=== PATIENT | female | born 1940 | race Caucasian/White ===

== ENCOUNTER → 2019-05-25 11:11 | Outpatient (BNVA) | payer MEDICARE, OTHER, SELFPAY | PROVIDERS: Family Provider Nurse Practitioner; PCP Nurse Practitioner; Visit Provider Specialist | DX: G25.0 Essential tremor (principal); Z87.891 Personal history of nicotine dependence | CPT/HCPCS: 99213 ==

== ENCOUNTER → 2019-11-27 12:17 | Outpatient (BNVA) | payer MEDICARE, OTHER, SELFPAY | PROVIDERS: Family Provider Nurse Practitioner; PCP Nurse Practitioner; Visit Provider Surgery | DX: Z11.59 Encounter for screening for other viral diseases (principal) | CPT/HCPCS: 87635 ==

== ENCOUNTER 2019-12-02 06:41 | Day surgery (SDC) | payer MEDICARE, OTHER, SELFPAY ==
[2019-11-30 10:54] VITALS: BMI 24.0
--- NOTE | 2019-12-02 06:45 | W.PM.OPSFHP ---
Same Day Surgery H&P Indication for Procedure/HPI DATE OF PROCEDURE: December 02, 2019 CHIEF COMPLAINT/INDICATIONFOR SURGICAL PROCEDURE: Bleeding per rectum PREOP DIAGNOSIS: Bleeding per rectum PLANNED PROCEDRUE: Operation Date: 12/02/19 07:30 Proposed Procedures p Colonoscopy 83253 K57.92(Not Applicable) - Ilan Simons MD This is a pleasant 72 years old female patient well-known to me from previous surgery as she did have laparoscopic sigmoid colectomy back in August 2018 for complicated diverticulitis. Patient recently started to have bleeding per rectum before 2 weeks and she was started on antibiotics and since then it stopped. Patient is referred to me for potential colonoscopy. She currently denies any other symptoms. Patient had a colonoscopy back in November 2018 by me and was found to have scattered diverticula of the descending colon without complication and had at that time stitch granuloma. Interim history 12/02/2019 Patient comes today for her scheduled colonoscopy, and she continues to complain of blood with her stool. And she denies any blood thinners. ROS All systems have been reviewed negative except as per the above or per problem list Medications/Allergies* Home Medications Medication Instructions Recorded Confirmed Type bupropion HCl 200 mg tablet,12 hr 200 mg PO DAILY tab 05/25/19 11/30/19 History sustained-release hydrocodone 5 mg-acetaminophen 325 1 tab PO DAILY tab 05/25/19 11/30/19 History mg tablet lovastatin 20 mg tablet 20 mg PO DAILY 05/25/19 11/30/19 History meloxicam 15 mg tablet 15 mg PO DAILY 05/25/19 11/30/19 History pantoprazole 40 mg tablet,delayed 40 mg PO BID tab 10/26/19 11/30/19 History release enalapril maleate 10 mg PO DAILY 11/30/19 11/30/19 History Allergies/Adverse Reactions Allergy/AdvReac Type Severity Reaction Status Date / Time Penicillins Allergy ALGY-Swell Verified 12/02/19 06:46 Lip/Tongue/Throat Sulfa (Sulfonamide Allergy ALGY-Swell Verified 12/02/19 06:46 Antibiotics) Lip/Tongue/Throat codeine AdvReac ADR-Abdominal Verified 12/02/19 06:46 Pain Pertinent History/Comorbid Conditions* Medical History (Updated 10/26/19 @ 15:19 by Ilan Simons MD) GERD (gastroesophageal reflux disease) Hypercholesteremia Hyperlipidemia Hypertension Surgical History (Updated 10/26/19 @ 15:19 by Ilan Simons MD) H/O colonoscopy 10/2018 H/O esophagogastroduodenoscopy yrs ago H/O hernia repair H/O: hysterectomy History of bladder surgery History of colon resection Hx of cholecystectomy Family History (Updated 10/26/19 @ 11:18 by Jazmine Escudero LPN) Diabetes Hypertension Stroke Denies family history of CAD (coronary artery disease) Anesthesia complication Bleeding disorder Cancer Social History Smoking and tobacco status: former smoker Quit status (tobacco): has quit using tobacco Year quit tobacco: 1999 Alcohol intake: never Lives independently: Yes Household members: family Marital status: Single Current occupational status: retired History of recent travel: No Pertinent Exam Findings alert, oriented x 3, clear to auscultation bilaterally, regular rate & rhythm and procedure specific exam findings (Abdominal examination nontender nondistended soft) Recommendations Surgery/Procedure today (Colonoscopy with possible biopsy. 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
[2019-12-02 06:54] VITALS: BMI 24.0
[2019-12-02 07:00] VITALS: BP 142/82; PULSE 83; RESP 18; TEMP 36.3; O2SAT 99
[2019-12-02] MEDS: sodium chloride 0.9% 1,000 ML 30 ML IV (07:07)
--- NOTE | 2019-12-02 07:24 | ANES.PREANE2 ---
Pre-Anesthetic Assessment Pre-Anesthetic Assessment: Height/Weight: Height 1.63 m Weight 63.503 kg Temp Pulse Resp BP Pulse Ox 97.4 F L 83 18 142/82 99 12/02/19 07:00 12/02/19 07:00 12/02/19 07:00 12/02/19 07:00 12/02/19 07:00 Preop Diagnosis: Bleeding per rectum Proposed Procedure: Operation Date: 12/02/19 07:30 Proposed Procedures p Colonoscopy 83469 K57.92(Not Applicable) - Ilan Simons MD Was Beta Carol taken within 24 hours: Yes Last intake: Intake Last Liquid Date 12/01/19 Last Liquid Time 22:00 Last Solid Date 11/30/19 Last Solid Time 20:00 Social: Social History: No alcohol and No tobacco Exam: Pre-Anes Outpt Exam: alert, oriented x 3, clear to auscultation bilaterally and regular rate & rhythm Airway: Submandibular: WNL Cervical ROM: WNL MP: 2 History/ROS: No significant complaints Pulmonary: Pulmonary: None reported CV/HEM: CV/HEM: HTN : : None reported Hepatic: Hepatic: None reported GI: GI: GERD Metabolic: Metabolic: None reported Musc/skel: Musc/skel: None reported Neuropsych: Comments: Essential Tremor Anesthetic Plan: ASA status: 3 Anesthesia: MAC Meds/Allergies Current Medications: Current Medications Generic Name Dose Route Start Last Admin Trade Name Freq PRN Reason Stop Dose Admin Sodium Chloride 1,000 mls @ 30 ml s/hr 12/02/19 06:45 12/02/19 07:07 Sodium Chloride 0.9% IV 12/03/19 06:44 30 mls/hr .Q24H LORI Administration PFSH Anesthesia PFSH: Medical History GERD (gastroesophageal reflux disease) Hypercholesteremia Hyperlipidemia Hypertension Surgical History H/O colonoscopy 10/2018 H/O esophagogastroduodenoscopy yrs ago H/O hernia repair H/O: hysterectomy History of bladder surgery History of colon resection Hx of cholecystectomy Family History Other Diabetes Hypertension Stroke Denies family history of CAD (coronary artery disease) Anesthesia complication Bleeding disorder Cancer Social History Smoking and tobacco status: former smoker Quit status (tobacco): has quit using tobacco Year quit tobacco: 1999 Alcohol intake: never Lives independently: Yes Household members: family Marital status: Single Current occupational status: retired History of recent travel: No Data Anesthesia Cardiac Studies: No Data to Display
--- NOTE | 2019-12-02 08:08 | ANE.PACU2 ---
Inpatient post-anesthesia follow up: Airway intact: Yes Vital signs: Temperature 97.4 F Pulse Rate 83 Respiratory Rate 18 Blood Pressure 142/82 Pulse Oximetry 99 Oxygen Delivery Me thod Room Air Oxygen Flow Rate Fraction of Inspir ed Oxygen Hydration adequate: Yes Nausea and vomiting: No Pain level: 1 Mental status: Baseline
[2019-12-02 08:09] VITALS: BP 124/65; PULSE 68; RESP 18; TEMP 36.3; O2SAT 100
[2019-12-02 08:22] VITALS: BP 134/75; PULSE 69; RESP 18; O2SAT 100
== END 2019-12-02 08:39 | disposition home or self-care (01) ==
PROVIDERS: PCP Nurse Practitioner; Visit Provider Surgery
PROC: 0DJD8ZZ Inspection of Lower Intestinal Tract, Via Natural or Artificial Opening Endoscopic (ICD-10-PCS; CPT 45378; principal; 2019-12-02 07:30)
DX: K62.5 Hemorrhage of anus and rectum (principal); K57.30 Diverticulosis of large intestine without perforation or abscess without bleeding; K21.9 Gastro-esophageal reflux disease without esophagitis; E78.00 Pure hypercholesterolemia, unspecified; E78.5 Hyperlipidemia, unspecified; I10 Essential (primary) hypertension
CPT/HCPCS: 12345; 45380; 88305; J2704; J7030

== ENCOUNTER → 2020-05-16 08:38 | Outpatient (BNVA) | payer MEDICARE, OTHER, SELFPAY | PROVIDERS: PCP Nurse Practitioner; Visit Provider Specialist | DX: G25.0 Essential tremor (principal); Z87.891 Personal history of nicotine dependence | CPT/HCPCS: 99212 ==

== ENCOUNTER 2020-07-20 13:16 | Outpatient (CLI) | payer MEDICARE, OTHER, SELFPAY ==
--- NOTE | 2020-07-20 13:27 | CT_ITS ---
WS: [id number] CT ABDOMEN PELVIS TECHNIQUE: Noncontrast CT of the abdomen and pelvis with coronal and sagittal reformatted images. CLINICAL INFORMATION: HEMATURIA, LUQ PAIN COMPARISON: CT 8 29,018 DLP: 1039.[address] scans at [facility] use at least one of these dose optimization techniques: automat ed exposure control; mA and/or kV adjustment per patient size (includes targeted exams where dose is matched to clinical indication); or iterative reconstruction. FINDINGS: Noncontrast liver is normal. Adrenal glands are normal. No hydronephrosis in either kidney. Prominent extrarenal pelvises bilaterally. No obstructing renal or ureteral calculi. A few tiny nonobstructing right calyceal tip calculi. 7 mm nodule left lower lobe medially is stable. Noncontrast pancreas appears normal. Normal caliber a bdominal aorta. Aortic calcification. Small esophageal hiatal hernia. Postoperative changes distal sigmoid colon. Sigmoid diverticulosis. No evidence of acute diverticulit is. Vascular calcification. No abdominal or pelvic lymphadenopathy. No inguinal lymphadenopathy. Lumb ar scoliosis convex left. CT/CT kidney stone [id number] IMPRESSION: 1. No hydronephrosis. No obstructing renal or ureteral calculi. 2. Nonobstructing subcentimeter right calyceal tip calculi. 3. Small esophageal hiatal hernia. 4. Postoperative changes distal sigmoid colon. Sigmoid diverticulosis. No evid ence of acute diverticulitis 5. No other significant changes from previous.
== END 2020-07-20 13:17 | disposition home or self-care (01) ==
PROVIDERS: PCP Nurse Practitioner; Visit Provider Nurse Practitioner
DX: R31.9 Hematuria, unspecified (principal); R10.12 Left upper quadrant pain; K44.9 Diaphragmatic hernia without obstruction or gangrene; N20.0 Calculus of kidney
CPT/HCPCS: 74176

== ENCOUNTER 2020-08-25 13:44 | Outpatient (CLI) | payer MEDICARE, OTHER, SELFPAY ==
--- NOTE | 2020-08-25 13:52 | MM_ITS ---
WS: [id number] BILATERAL DIGITAL SCREENING MAMMOGRAPHY WITH CAD CLINICAL INFORMATION: SCREENING HISTORY: Screening mammogram. Left breast tenderness. COMPARISON: TECHNIQUE: Bilateral CC and MLO views. FINDINGS: Scattered fibroglandular densities bilaterally. Punctate and lucent centered calcifications. Vascular calcification. No suspicious focal mass, asymmetry, calcifications, or architectural distortion. No evidence of malignancy. MM/[place] [id number] IMPRESSION: BI-RADS: 2-Benign FOLLOW UP: 1 Year Follow-up Recommend return to annual screening mammography.
== END 2020-08-25 13:45 | disposition home or self-care (01) ==
LOC: RADSHAW 13:50
PROVIDERS: PCP Nurse Practitioner; Visit Provider Nurse Practitioner
DX: Z12.31 Encounter for screening mammogram for malignant neoplasm of breast (principal)
CPT/HCPCS: 77067

== ENCOUNTER → 2021-05-16 08:07 | Outpatient (BNVA) | payer MEDICARE, OTHER, SELFPAY | PROVIDERS: PCP Nurse Practitioner; Visit Provider Specialist | DX: G25.0 Essential tremor (principal) | CPT/HCPCS: 99212; 99213 ==

== ENCOUNTER → 2022-06-22 10:08 | Outpatient (BNVA) | payer MEDICARE, OTHER, SELFPAY | PROVIDERS: PCP Nurse Practitioner; Visit Provider Specialist | DX: G25.0 Essential tremor (principal) | CPT/HCPCS: 99213 ==

== ENCOUNTER 2023-01-23 08:11 | Outpatient (CLI) | payer MEDICARE, OTHER, SELFPAY ==
[2023-01-23 08:40] VITALS: BMI 20.7
--- NOTE | 2023-01-23 08:40 | ECG_ITS ---
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 Interpretive Statements NAME OF STUDY: LEXISCAN SESTAMIBI STRESS TEST INDICATION: Chest Pressure, Ateriosclerosis PROCEDURE: At the baseline, the blood pressure was 142/69 mm Hg with a heart rate of 67 bpm. The electrocardiogram showed sinus rhythm, normal axis with possible old septal infarct. Non specific T wave abnormality in III, aVF, V4-V6. ??? The Lexiscan was infused over a period of 20 seconds. A total of 0.4 milligrams of Lexiscan was infused. The stress phase was continued for a total of 5 minutes. Heart rate at the end of the stress phase was 87 bpm with a blood pressure of 115/54 mm Hg. The EKG at the peak infusion revealed no significant changes. ??? Sestamibi was injected 20 seconds after the Lexiscan infusion. ??? Blood pressure at the end of the recovery phase was 115/54 mm Hg with a heart rate of 86 beats per minute. ??? CONCLUSION: 1. No significant EKG changes with the LexiScan infusion. 2. No LexiScan induced chest pain or cardiac arrhythmia. 3. Normal blood pressure and heart rate response. 4. Sestamibi/sestamibi perfusion scan pending; see separate report. Electronically Signed On 01-25-2023 7:47:59 [place] PHOTOGRAPHER by Sallie Tavares M.D. [email or web address]
--- NOTE | 2023-01-23 08:40 | NMCV_ITS ---
NM nurys perf SPECT r/s* [id number] Nicol Choudhury Age: 82 Gender: F : 1940 Exam Date: 01/23/2023 09:31 Ordering Phys: Suyapa Patterson NP Technologist: ASHLEY Huerta Exam Location: [facility] Indications: CHEST PAIN STRESS TEST Please [facility] IMAGE PROTOCOL Rest/Stress 1 Lexiscan Day Radiopharmaceutical Dose (mCi) Administration Site Administered by Rest: Tc-99m 10.7 IV Debbie Jurado PRODUCT DEVELOPMENT COORDINATOR Sestamibi Stress:Tc-99m 32.4 IV Debbie Jurado, PRODUCT DEVELOPMENT COORDINATOR Sestamibi Rest: 23-Jan-2023 60 Discovery 630 Stress: 23-Jan-2023 30 Discovery 630 0.4mg Lexiscan. Images obtained in supine and prone position. SPECT RESULTS Technical Quality: Excellent Raw Data Analysis: Normal Image Corrections: No attenuation or motion correction applied Summed Stress Score: 0 Summed Rest Score: 2 Summed Difference Score: 0 PERFUSION FINDINGS Fairly uniform myocardial tracer uptake with no significant perfusion abnormalities FUNCTIONAL RESULTS (calculated via Gated SPECT) Stress Image LV EF (%): 92 Stress EDV (mL):36 TID: 1.09 Stress ESV (mL):3 FUNCTIONAL FINDINGS: Segmental wall motion analysis revealing no gross wall motion abnormalities IMPRESSIONS 1. Myocardial perfusion imaging revealing fairly uniform myocardial tracer uptake with no significant perfusion abnormalities. 2. Normal LV ejection fraction of 92%. 3. LV wall motion analysis revealing no gross wall motion abnormalities. 4. Normal LV volume No similar previous studies are available for comparison Dr Laura Arellano MD [facility] (Electronically Signed) Final Date: 23 January 2023 13:02 S
[2023-01-23] MEDS: regadenoson 0.4 Mg/5 ml Syringe IVP (10:10)
[2023-01-23 10:18] VITALS: BP 115/54; PULSE 86
== END 2023-01-23 08:12 | disposition home or self-care (01) ==
LOC: CDL 08:12
PROVIDERS: PCP Nurse Practitioner Family; Visit Provider Nurse Practitioner Family
DX: R07.9 Chest pain, unspecified (principal); I70.90 Unspecified atherosclerosis
CPT/HCPCS: 36415; 78452; 93017; 96374; A9500; J2785

== ENCOUNTER → 2023-06-18 10:22 | Outpatient (BNVA) | payer MEDICARE, OTHER, SELFPAY | PROVIDERS: PCP Nurse Practitioner Family; Visit Provider Specialist | DX: G25.0 Essential tremor (principal) | CPT/HCPCS: 99212 ==

== ENCOUNTER 2023-08-12 10:13 | Outpatient (CLI) | payer MEDICARE, OTHER, SELFPAY ==
--- NOTE | 2023-08-12 10:25 | CTR_ITS ---
PROCEDURE INFORMATION: Exam: CT Chest Without Contrast; Diagnostic Exam date and time: 08/12/2023 10:46 AM Age: 82 years old Clinical indication: Condition or disease; Lung condition and disease; Pulmonary nodule, solitary; Additional info: Solitary pulmonary nodule/abnormal weight loss TECHNIQUE: Imaging protocol: Diagnostic computed tomography of the chest without contrast. Radiation optimization: All CT scans at this facility use at least one of these dose optimization techniques: automated exposure control; mA and/or kV adjustment per patient size (includes targeted exams where dose is matched to clinical indication); or iterative reconstruction. COMPARISON: CT chest w con* [id number] 11/05/2017 9:27 AM RADIATION DOSE METRICS: Total DLP (mGy-cm): 668.52 FINDINGS: Lungs: 5 mm right lower lobe lung nodule (series 3, image 34) is not significantly changed since 11/05/2017 CT. Stable 5 mm right middle lobe perifissural nodule (image 36). Mild linear atelectasis/scar in the bilateral apices and anterior/medial left upper lobe. 8 mm medial left lower lobe lung nodule (image 42) has slightly enlarged from 7 mm on 11/05/2017. Mild emphysema and hyperinflation again noted. Pleural spaces: Unremarkable. No pneumothorax. No pleural effusion. Heart: Unremarkable. No cardiomegaly. No pericardial effusion. Lymph nodes: Unremarkable. No enlarged lymph nodes. Vasculature: Unremarkable. No aortic aneurysm. Bones/joints: Mild rotary scoliosis of the thoracolumbar junction and multilevel thoracic spondylosis again noted. Mild to moderate bilateral glenohumeral arthrosis. Large Schmorl's nodule of the superior endplate of T12 vertebra with mild height loss is unchanged. Soft tissues: Unremarkable. CT/CT chest wo con [id number] IMPRESSION: 1. No clear-cut etiologic correlate for the reported history of weight loss. 2. Up to 3 lung nodules present. The 8 mm medial left lower lobe lung nodule has mildly enlarged from 6-7 mm on 11/05/2017 favoring benign or indolent low-grade lesion. Six-month follow-up CT versus PET-CT may be considered. The other nodules are stable.
== END 2023-08-12 10:14 | disposition home or self-care (01) ==
LOC: RAD 10:13
PROVIDERS: PCP Nurse Practitioner Family; Visit Provider Nurse Practitioner Family
DX: R91.8 Other nonspecific abnormal finding of lung field (principal); R63.4 Abnormal weight loss; J98.11 Atelectasis; J43.9 Emphysema, unspecified; M41.83 Other forms of scoliosis, cervicothoracic region; M47.814 Spondylosis without myelopathy or radiculopathy, thoracic region; M19.019 Primary osteoarthritis, unspecified shoulder; M51.44 Schmorl's nodes, thoracic region
CPT/HCPCS: 71250

== ENCOUNTER → 2023-08-23 10:12 | Outpatient (BNVA) | payer MEDICARE, OTHER, SELFPAY | PROVIDERS: PCP Nurse Practitioner Family; Referring Provider Nurse Practitioner Family; Visit Provider Surgery | DX: R10.9 Unspecified abdominal pain (principal); R03.0 Elevated blood-pressure reading, without diagnosis of hypertension; K57.90 Diverticulosis of intestine, part unspecified, without perforation or abscess without bleeding | CPT/HCPCS: 99204 ==

== ENCOUNTER 2023-08-28 13:05 | Outpatient (CLI) | payer MEDICARE, OTHER, SELFPAY | END 2023-08-28 13:06 | disposition home or self-care (01) | LOC: LAB 13:07 | PROVIDERS: PCP Nurse Practitioner Family; Visit Provider Surgery | DX: R10.9 Unspecified abdominal pain (principal) | CPT/HCPCS: 82274; 83630 ==

== ENCOUNTER 2023-09-03 13:12 | Outpatient (CLI) | payer MEDICARE, OTHER, SELFPAY ==
[2023-09-03] MEDS: iohexol 350 mg/mL 500 mL Btl (per mL) PO (13:30)
--- NOTE | 2023-09-03 14:15 | CTR_ITS ---
PROCEDURE INFORMATION: Exam: CT Abdomen And Pelvis With Contrast Exam date and time: 09/03/2023 2:17 PM Age: 82 years old Clinical indication: Abdominal pain; Generalized; Prior surgery; Surgery date: 6+ months; Surgery type: Colon; Patient HX: Abdomen pain with black stools, diarrhea; Additional info: Abd pain, iv and oral TECHNIQUE: Imaging protocol: Computed tomography of the abdomen and pelvis with contrast. Total images: 406 Radiation optimization: All CT scans at this facility use at least one of these dose optimization techniques: automated exposure control; mA and/or kV adjustment per patient size (includes targeted exams where dose is matched to clinical indication); or iterative reconstruction. Contrast material: OMNI 350; Contrast volume: 100 ml; Contrast route: INTRAVENOUS (IV); COMPARISON: CT kidney stone [id number] 07/20/2020 1:34 PM RADIATION DOSE METRICS: Total DLP (mGy-cm): 261.6 FINDINGS: Liver: Normal. No mass. Gallbladder and biliary ducts: Cholecystectomy noted with postoperative biliary ductal fullness. Pancreas: Normal. No ductal dilation. Spleen: Normal. No splenomegaly. Adrenal glands: Normal. No mass. Kidneys and ureters: 12 mm calculus in the right renal pelvis is nonobstructing. Stomach and bowel: Colonic diverticulosis is present without diverticulitis. Appendix: No evidence of appendicitis. Intraperitoneal space: Unremarkable. No free air. No significant fluid collection. Vasculature: Incidental phleboliths noted. Lymph nodes: Unremarkable. No enlarged lymph nodes. Urinary bladder: Unremarkable as visualized. Reproductive: Prior hysterectomy noted. Bones/joints: Facet joint degenerative changes are present. Willis left spinal scoliosis. L2-L3 degenerative disc disease with disc space narrowing and osteophyte formation. Soft tissues: Soft tissue thickening with central coarse calcification superficial to the right ischial tuberosity felt to represent dystrophic calcification from prior trauma. Other findings: Moderate atherosclerotic disease burden is evident. CT/CT abdomen pelvis w con* [id number] IMPRESSION: No acute intra-abdominal pathology.
[2023-09-03] MEDS: iohexol 350 mg/mL 500 mL Btl (per mL) IV (14:40)
== END 2023-09-03 13:13 | disposition home or self-care (01) ==
LOC: RAD 13:13
PROVIDERS: PCP Nurse Practitioner Family; Visit Provider Surgery
DX: R10.9 Unspecified abdominal pain (principal); Z90.49 Acquired absence of other specified parts of digestive tract; K57.30 Diverticulosis of large intestine without perforation or abscess without bleeding; M47.816 Spondylosis without myelopathy or radiculopathy, lumbar region; M41.9 Scoliosis, unspecified
CPT/HCPCS: 74177; Q9967

== ENCOUNTER → 2023-10-09 09:44 | Outpatient (BNVA) | payer MEDICARE, OTHER, SELFPAY | PROVIDERS: PCP Nurse Practitioner Family; Visit Provider Surgery | DX: Z09 Encounter for follow-up examination after completed treatment for conditions other than malignant neoplasm (principal); R03.0 Elevated blood-pressure reading, without diagnosis of hypertension | CPT/HCPCS: 99213 ==

== ENCOUNTER 2024-02-20 11:56 | Outpatient (CLI) | payer MEDICARE, OTHER, SELFPAY ==
--- NOTE | 2024-02-20 12:08 | CT_ITS ---
WS: [id number] CT chest wo con [id number] HISTORY: OTHER NONSPECIFIC ABNORMAL FINDING OF LUNG FIELD/LUNG NODULE TECHNIQUE: Axial imaging performed through the thorax. Coronal and sagittal reformats are submitted. All CT scans at [facility] use at least one of these dose optimization techniques: automated exposure control; mA and/or kV adjustment per patient size (includes targeted exams where dose is mat ched to clinical indication); or iterative reconstruction. CONTRAST: None DLP: 212.63 mGy.cm COMPARISON: 08/12/2023, 11/05/2017 Lungs and central airway: Moderate pulmonary hyperexpansion. 5 mm noncalcified pulmonary nodules are reidentified in the RIGHT lower lobe and along the RIGHT minor fissure. No new mass or nodule. Pleura: Normal. No pleural effusion. Heart and pericardium: Normal size heart with no pericardial effusion. Mediastinum and mickey: No mediastinum or hilar adenopathy. Vessels: Mild plaque at the aortic arch. No aneurysm. Normal sized pulmonary artery. Chest wall and lower neck: No soft tissue masses. Upper abdomen: No adrenal mass. Osseous structures: Increase in thoracic kyphosis. CT/CT chest wo con [id number] IMPRESSION: 1. Stable pulmonary nodules in the RIGHT lower lobe and along the RIGHT minor fissure since 08/12/2023. Recommend [address] follow-up. 2. No mediastinal or hilar adenopathy. 3. Mild atherosclerosis thoracic aorta.
== END 2024-02-20 11:57 | disposition home or self-care (01) ==
PROVIDERS: PCP Nurse Practitioner Family; Visit Provider Nurse Practitioner Family
DX: R91.8 Other nonspecific abnormal finding of lung field (principal); M40.204 Unspecified kyphosis, thoracic region
CPT/HCPCS: 71250

== ENCOUNTER 2025-02-11 08:10 | Outpatient (CLI) | payer MEDICARE, OTHER, SELFPAY ==
--- NOTE | 2025-02-11 08:15 | CT_ITS ---
WS: [id number] CT chest wo con [id number] HISTORY: 1 yr f/u nodule TECHNIQUE: Axial imaging performed through the thorax. Coronal and sagittal reformats are submitted. All CT scans at [facility] use at least one of these dose optimization techniques: automated exposure control; mA and/or kV adjustment per patient size (includes targeted exams where dose is matched to clinical indication); or iterative reconstruction. CONTRAST: None DLP: 196.65 mGy.cm COMPARISON: 02/20/2024, 08/12/2023, 11/05/2017 Lungs and central airway: Long-term stability of pulmonary nodules along the RIGHT minor fissure and bilaterally in the lower lobes. Largest nodule is ovoid measuring 7.5 mm in the medial LEFT lower lobe. Stable 4 mm nodule RIGHT lower lobe and 5 mm nodule along the minor fissure. No new or enlarging nodule. Lungs are hyperexpanded from emphysema. Linear apical scarring and fibrosis. Pleura: Normal. No pleural effusion. Heart and pericardium: Normal size heart with no pericardial effusion. Mediastinum and mickey: Mediastinal and hilar lymph nodes are reidentified. Lymph nodes are stable although do appear to be slightly enlarged. Long-term stability. AP window lymph node is the largest measuring 15 mm. No change since 11/05/2017. Vessels: Mild atherosclerosis aorta. Pulmonary arteries slightly enlarged. Coronary artery calcifications. Chest wall and lower neck: No soft tissue masses. Upper abdomen: Suprarenal aortic calcifications. Osseous structures: Increase in thoracic kyphosis. Concave fracture involving the superior endplate of T12. CT/CT chest wo con [id number] IMPRESSION: 1. Long-term stability RIGHT minor fissure and bilateral lower lobe subcentime ter pulmonary nodules. No additional imaging follow-up necessary. 2. Chronic emphysema. 3. Atherosclerosis aorta. 4. No pneumonia.
== END 2025-02-11 08:11 | disposition home or self-care (01) ==
PROVIDERS: PCP Family Medicine; Visit Provider Family Medicine
DX: R91.1 Solitary pulmonary nodule (principal); J43.8 Other emphysema; I70.0 Atherosclerosis of aorta
CPT/HCPCS: 71250